=== PATIENT | female | born 2005 | race Hispanic/Latino ===

== ENCOUNTER 2025-03-11 22:57 | Observation (INO) | payer OTHER, SELFPAY ==
[2025-03-11 18:03] VITALS: BP 112/74
[2025-03-11 18:48] LABS: HCG, Urine Qualitative Screen Negative
--- NOTE | 2025-03-11 21:04 | ED.GENMED ---
History of Present Illness
General
Chief Complaint: Numbness
Time Seen by Provider: 03/11/25 21:04
History of Present Illness
History of Present Illness:
TIME OF INITIAL EVALUATION
- 9:15 PM
REVIEW OF OLD RECORDS
- The patient denies any significant past medical history; no old records available for review in [facility]
Note:
CHIEF COMPLAINT(S)
Numbness in the right thigh and arm.
HISTORY OF PRESENT ILLNESS
The patient is a 20-year-old female presenting with numbness in the right thigh. She reports waking up at 6 a.m. today with these symptoms, having gone to bed the previous night without any issues. The patient denies having experienced anything
similar before. She reports that the numbness also extends to the right arm, which she finds more concerning. While there is some sensation upon touch, it feels different compared to normal. Additionally, she experiences some unusual sensations in
her face, though less pronounced than the thigh or arm symptoms. She is able to perform motion and retains muscle strength, suggesting the issue is primarily sensory.
The patient describes a history of facial paralysis due to stress. She questions whether the current symptoms might also be stress-related, although she is uncertain. There is no reported pain in the back upon palpation, and her ability to move
remains unimpaired despite altered sensation.
PLAN
Consult with Neurology for further evaluation. Obtain a CT scan to investigate the cause of numbness.
DIFFERENTIAL DIAGNOSIS
The Differential Diagnosis includes, in no particular order and is not limited to: Transient Ischemic Attack, Multiple Sclerosis, Peripheral Neuropathy, Conversion Disorder, Guillain-Rivera� Syndrome, Hypoglycemia, Migraine, Cervical Radiculopathy,
Brachial Plexopathy, Mononeuritis Multiplex.
- General: Well appearing in no distress
- HEENT: Moist oral mucosa
- Cardiovascular: No murmurs, normal heart rate, regular rhythm, No chest wall tenderness
- Pulmonary: No respiratory distress, breath sounds are clear and equal
- Abdomen: Soft with no peritoneal signs, no tenderness
- Neurologic: Excellent strength all extremities, no coordination deficits, however she clearly has sensory deficits to the right thigh more so than the right upper extremity and right side of the face
- Psychiatric: Appropriate mental status, normal insight and judgement
- Extremities: Nontender, no edema, moves all extremities equally
- Skin: No rash, no lesions
RADIOLOGY
- CT head negative
EKG
- Sinus 70, normal axis, no acute ST abnormality
LABS
- CBC shows slight anemia with a hemoglobin 11.2, chemistries unremarkable, hCG negative
UPDATE
-SUMMARY OF ENCOUNTER
The patient presented to the emergency department with numbness in the right thigh and arm. A CT scan and blood work were performed, both of which returned normal results. Despite this, the symptoms persisted, leading to considerations for further
evaluation as per a neurologists recommendation for an MRI.
DISPOSITION
Discussions with the hospitalist are being initiated to consider inpatient admission for further evaluation.
PLAN
Consult with neurology and obtain an MRI for further evaluation of the numbness and to investigate potential underlying causes.
MEDICAL DECISION MAKING
The patient exhibits persistent sensory symptoms without resolution. Chronic conditions and differential diagnoses include Transient Ischemic Attack, Multiple Sclerosis, Peripheral Neuropathy, Conversion Disorder, Guillain-Rivera� Syndrome,
Hypoglycemia, Migraine, Cervical Radiculopathy, Brachial Plexopathy, Mononeuritis Multiplex. Given the complexity and persistence of symptoms, inpatient observation is being considered.
PATHOLOGIES TO CONSIDER
Stroke (focal neurologic deficits + sudden onset), Multiple Sclerosis (sensory impairment), Guillain-Rivera� Syndrome (progressive numbness)�very unlikely, Transient Ischemic Attack (neurologic symptoms).
I discussed case with Dr. Gonzalez who recommends admission for MRI with and without contrast tomorrow. Dr. Bojorquez for admission.
Phy Exam
Physical Exam
Physical Exam:
See HPI
Course
Orders/Labs/Results
Orders:
Orders
03/11/25 18:36
Test Result ONCE
03/11/25 18:40
HCG, Urine Qualitative Screen Urgent
Date Specimen was Collected: 03/11/25
Time Specimen was Collected: 18:36
03/11/25 21:12
CT Head W/o Iv Contrast Urgent
Comment:
Reason For Exam: R sensory deficits new
03/11/25 21:15
Electrocardiogram (*1) Urgent
Reason for Study: TIA/Stroke
EKG- Treatment ONCE
03/11/25 21:30
Complete Blood Count/With Diff Urgent
Comprehensive Metabolic Panel Urgent
03/11/25 22:22
Electrocardiogram (*1) Urgent
Reason for Study: TIA/Stroke
EKG- Treatment ONCE
03/11/25 22:45
Admit/Transfer Patient As Directed
Co-Sign Provider:
Level of Care: Observation services
Assign to:: Medical/Surgical
Physician / Group: [place]
Diagnosis: numbness
PRN Pain Medication Management As Directed
May give lesser potent ordered pain med per pt: Yes
preference::
Protocol:: Medication orders for pain may be administered in a
manner that supports deferring to patient preference
when the pt is:
- Requesting an ordered lesser potent pain medication.
Least to most potent pain medications are defined
as: acetaminophen < NSAID < tramadol < opioids
(morphine, oxycodone, hydromorphone).
- Requesting a lesser dose of the same medication IF
ORDERED.
- Requesting a less intrusive route of administration
if both routes are prescribed by the provider (PO <
IV).
03/11/25 22:46
Code Status As Directed
Resuscitation Status: Full Code
03/11/25 22:51
EKG [Electrocardiogram (*1)] Urgent
Reason for Study: Fatigue / Weakness
Abnormal Lab Results
03/11/25
21:30
RBC 4.03 L 10^6/uL
(4.20-5.40)
Hgb 11.2 L g/dL
(12.0-16.0)
Hct 33.4 L %
(37.0-47.0)
Glucose 102 H mg/dl
(70-99)
03/11/25 21:30
03/11/25 21:30
Vital Signs
Initial and Last Documented VS:
Initial Vital Signs
Temp Pulse Resp BP Pulse Ox
37.0 C 88 16 112/74 100
03/11/25 18:03 03/11/25 18:03 03/11/25 18:03 03/11/25 18:03 03/11/25 18:03
Last Documented Vital Signs
Temp Pulse Resp BP Pulse Ox
37.0 C 74 13 107/69 100
03/11/25 18:03 03/11/25 21:31 03/11/25 21:31 03/11/25 21:31 03/11/25 21:55
*Pulse Oximetry
SaO2: 100
Oxygen Mode of Delivery: Room air
Patient hypoxic: no
*Critical Care Note
Total Time (30-74mins, 75-104mins- exclusive of procedures): Not Applicable
ED Attending Note
-
Portions of this chart may have been created with voice recognition software.� Occasional wrong word or��sound alike� substitutions may have occurred due to the inherent limitations of voice recognition software.
Discharge Plan
Departure
Patient Disposition: Admit
Date of Disposition: 03/11/25
Time of Disposition: 22:48
Presentation/result/management discussed w/ accepting MD/DO: Hospitalist
Patient with high blood pressure during this ER visit?: Yes
Discharge Problem:
Sensory deficit, right
Interventions
Interventions:
*Risk Screen - Suicide Last Done: 03/11/25 21:31
*General Assessment Last Done: 03/11/25 21:31
*Neglect/Abuse Screening Last Done: 03/11/25 21:31
*ED- Fall Risk Assessment Last Done: 03/11/25 21:31
*ED COVID-19 Vaccine History Last Done: 03/11/25 21:31
ED- Neurological Assessment Last Done: 03/11/25 21:33
[2025-03-11 21:21] VITALS: BMI 26.6
[2025-03-11 21:31] VITALS: BP 107/69
[2025-03-11 21:50] LABS: % Basophils 0.1 % (0-2); % Eosinophils 0.6 % (0-6); % Immature Granulocytes 0.3 % (0-0.5); % Lymphocytes 31.9 % (20.5-51.1); % Monocytes 6.5 % (1.7-9.3); % Neutrophils 60.6 % (42.2-75.2); Absolute Eosinophils 0.1 10^3/uL (0-0.7); Absolute Lymphocytes 2.5 10^3/uL (1.2-3.4); Absolute Monocytes 0.5 10^3/uL (0.1-0.6); Absolute Neutrophils 4.8 10^3/uL (1.4-6.5); Hematocrit 33.4 % (37.0-47.0); Hemoglobin 11.2 g/dL (12.0-16.0); Mean Corp Hgb Conc. 33.5 g/dL (33.0-37.0); Mean Corpuscular Hgb 27.8 pg (27.0-31.0); Mean Corpuscular Volume 82.9 fL (81.0-99.0); Nucleated Red Blood Cells % 0 %; Platelet Count 340 10^3/uL (130-400); Red Blood Cell Count 4.03 10^6/uL (4.20-5.40); Red Cell Dist. Width 13.1 % (11.5-14.5); White Blood Cell Count 7.9 10^3/uL (4.8-10.8)
[2025-03-11 21:58] VITALS: BP 112/75
[2025-03-11 22:00] VITALS: BP 109/69
[2025-03-11 22:11] LABS: ALT (SGPT) 16 U/L (0-35); AST (SGOT) 21 U/L (14-36); Albumin 4.5 g/dl (3.5-5.0); Alkaline Phosphatase 97 U/L (38-126); Blood Urea Nitrogen 8 mg/dl (7-17); Calcium 9.2 mg/dl (8.4-10.2); Carbon Dioxide 22 mmol/L (22-30); Chloride 106 mmol/L (98-107); Estimated Creatinine Clearance > 125 ml/min; Glucose 102 mg/dl (70-99); Potassium 3.7 mmol/L (3.5-5.1); Sodium 139 mmol/L (135-145); Total Bilirubin 0.5 mg/dl (0.2-1.3); Total Protein 7.3 g/dl (6.3-8.2); eGFR > 60.00
--- NOTE | 2025-03-11 22:32 | HPS.HSE ---
Family Physician
-
Family Physician: NOT KNOW UNKNOWN - PT DOES
Chief Complaint
-
Loss of sensation
History of Present Illness
20-year-old female with no known segment past medical history presenting to the emergency department with a 1 day history of right-sided lateral numbness.
Patient reported that about 3 days ago she did have 1 episode of a headache that lasted till day she took Tylenol and when she woke up the following day she was symptom-free. She has not had any symptoms of headache since then. She denies history
of recurrent headaches. She denies having any fevers chills or rash. She denies any neck pain or stiffness. She denies any recent nausea vomiting diarrhea. She denies any UTI symptoms.
Patient reported that she arose this a.m. with ascending numbness. Initially numbness was noticed on her right thigh laterally all the way to her foot. As the day progressed she also noticed numbness on her right lateral arm which is not as
prominent as compared to the leg. She also reports now that she has mild numbness on the right lower cheek/jaw. She denies any focal weakness. She denies any tingling. She denies any gait abnormality. She denies any dizziness. She denies any
recent falls injuries or motor vehicle collision. Patient has no known sick contacts and no recent travel. She denies any prior history of any surgeries.
She denies any known history of connective tissue disorder. She reports a family history of hypertension and hypothyroid and mother. She takes no medications and denies any ingestions.
In the emergency department patient was afebrile, blood pressure was 107/70 with a pulse of 74 she was satting 90% on room air.
CBC was unremarkable, electrolytes BUN/creatinine were unremarkable, LFTs normal.
CT of the head showed no abnormalities.
Medical History
Past Medical History
Past Medical History: Reports None
Past Surgical History: Reports None
Social History
Tobacco: Non-smoker
Alcohol: None
Drug: None
Personal: Single
Living: With Family
Family History
Family History: Not pertinent
Allergies / Home Medications
Allergies reflects when Allergies were last updated in [facility].
Home Medications with original date entered in [facility]
Allergy/Medication List:
Allergies
Allergy/AdvReac Type Severity Reaction Status Date / Time
No Known Allergies Allergy Unverified 03/11/25 18:03
Review of Systems
-
Constitutional: Reports No Symptoms
EENT: Reports No Symptoms
Respiratory: Reports No Symptoms
Cardiac: Reports No Symptoms
Abdomen/GI: Reports No Symptoms
: Reports No Symptoms
Musculoskeletal: Reports No Symptoms
Skin: Reports No Symptoms
Neurological: Reports Numbness
Endocrine: Reports No Symptoms
Hematologic/Lymphatic: Reports No Symptoms
Psych: Reports No Symptoms
Physical Exam
Vital Signs
Vital Signs
Temp Pulse Resp BP Pulse Ox
98.6 F 74 13 107/69 100
03/11/25 18:03 03/11/25 21:31 03/11/25 21:31 03/11/25 21:31 03/11/25 21:55
Physical Exam
General: Well Developed, Well Nourished and No Apparent Distress
HEENT: NormoCephalic, Moist mucous membranes and Atraumatic
Respiratory: Clear
Cardiac: S1/S2 and Regular Rhythm; No Murmur or Rub
GI: Soft, Non Tender, Non Distended and Normal Bowel Sounds; No Organomegaly
Rectal: Deferred by Provider
Musculoskeletal: No Clubbing, No Cyanosis and No Edema
Skin: No Rash
Neuro: AO x 3, No Motor Deficits, Cranial Nerves Intact, DTR's Intact & Symmetrical and Other (decreased light touch sensation on the lateral aspects of the right lower and upper extremities.); No No Sensory Deficits, Slurred Speech, Facial Droop or
Tremors
Hematologic/Lymphatic: No Lymphadenopathy
Psych: Calm
Laboratory Results
-
03/11/25 21:30
03/11/25 21:30
Laboratory Results
Total Bilirubin 0.5 mg/dl (0.2-1.3) 03/11/25 21:30
AST 21 U/L (14-36) 03/11/25 21:30
ALT 16 U/L (0-35) 03/11/25 21:30
Alkaline Phosphatase 97 U/L (38-126) 03/11/25 21:30
Data Reviewed
-
CT Scan: Report Reviewed by me
Lab Data: Labs Reviewed by me
Old Records: Reviewed
Impression/Plan
-
IMPRESSION:
20 y.o healthy female w/o significant personal or family history presenting with ascending right lateral numbness up to the level of the right jaw/lower cheek w/o any motor deficits. Normal cranial nerve examination. Normal gait and station. Labs
normal. CT head normal. No signs of infection, rash, injury. Exam c/w with a left lateral spinal cord or mid-brain lesion.
PLAN:
Numbness
- admit to med/surg obs
- per neuro, mri brain w/wo gadolinium
- cardiovascular panel
- inflammatory panel and chris
DVT PPX - SCDs
Code status - Full Code
[2025-03-11 23:00] VITALS: BP 108/72
[2025-03-12 00:27] VITALS: BP 98/66; BMI 26.2
[2025-03-12 07:30] VITALS: BP 99/61
[2025-03-12 08:00] LABS: Hematocrit 32.3 % (37.0-47.0); Hemoglobin 10.8 g/dL (12.0-16.0); Mean Corp Hgb Conc. 33.4 g/dL (33.0-37.0); Mean Corpuscular Volume 83.7 fL (81.0-99.0); Mean Platelet Volume 9.1 fL (7.4-10.4); Platelet Count 281 10^3/uL (130-400); Red Blood Cell Count 3.86 10^6/uL (4.20-5.40); Red Cell Dist. Width 13.2 % (11.5-14.5); White Blood Cell Count 5.7 10^3/uL (4.8-10.8)
--- NOTE | 2025-03-12 08:19 | CON.NEURO ---
Addendum entered and electronically signed by Hamzah Menezes MD 03/12/25 10:53:
Studies reviewed.
I have personally examined the patient. I reviewed and agree with the [employer]'s Note.
My addenda:
Awake, alert, interactive. No acute distress.
Speech intact.
Follows 2-step requests w/o difficulty. No tremor.
Extra-ocular movements grossly intact.
Facial movements full and symmetric. Hearing intact to normal conversational volume.
Normal UE movements bilaterally.
Neck: full ROM.
Chest: no dyspnea
Heart: no JVD
Ext: (-) Clubbing, (-) Cyanosis, (-) Edema
IMPRESSIONS/RECOMMENDATIONS:
Abrupt onset of right thigh, abdomen, arm, facial, sensation change
Differential diagnosis includes multiple sclerosis and variants, metabolic disturbances
Check MRI brain with and without contrast
Check MRI of cervical spine due to multilevel potential changes producing symptomatology
Consider initiation of high-dose steroids based on MRI of brain findings
Consider lumbar puncture based on MRI results, would perform if there are numerous lesions without enhancing lesions to better determine if there are oligoclonal bands which would help to confirm the diagnosis of multiple sclerosis
No clear indication at this time for the need of rehabilitation evaluation
Initiate replacement of vitamin B12 due to level below 400
D/W patient / nursing
All questions answered.
Will continue to follow patient.
Original Note:
Neuro Assessment/Plan
Assessment
This is a right-handed 20-year-old female with no known past medical history presenting to the [facility] on 03/11/2025 with a 1 day history of right-sided lateral numbness.
CT of the head showed no abnormalities
CBC was unremarkable, electrolytes BUN/creatinine were unremarkable, LFTs normal
ESR 27, CRP, 15.2, Vitamin D pending, DEANNA pending
Plan
Impressions:
I. right sided numbness due to infection, inflammation or demyelinating disease with imaging pending
II. migraine with aura although less likely as patient is still experiencing symptoms
Plan:
-Obtain brain and cervical MRI with and without to look for structural causes
-Obtain blood work to look for metabolic and vitamin abnormalities
-Pending results may need thoracic MRI, LP and additional lab work
-Will continue to follow
-All questions encouraged and answered, plan of care discussed with Dr. Menezes and patient
Consultation
Order
Date of Consultation: 03/12/25
Requesting Provider: hospitalist
Reason for Consult: right-sided lateral numbness
Subjective/Objective
Subjective Data
Date of Service: March 12, 2025
This is a right-handed 20-year-old female with no known past medical history presenting to the [facility] on 03/11/2025 with a 1 day history of right-sided lateral numbness.
Patient reported that about 3 days ago she did have 1 episode of a headache that lasted all day until she took Tylenol and when she woke up the following day she was symptom-free. She has not had any symptoms of headache since then. She denies
history of recurrent headaches and gets them maybe 1-2 times a year. She denies accompanying symptoms. She denies having any fevers chills or rash. She denies any neck pain or stiffness. She denies any recent nausea vomiting diarrhea. She denies
any UTI symptoms.
Patient reported that she arose yesterday with ascending numbness. Initially numbness was noticed around 6 am on her right thigh laterally all the way to her mid calf. As the day progressed, around 2 pm she also noticed numbness on her right
lateral arm which is not as prominent as compared to the leg. Five hours later started to feel numbness to right side of her face in her cheek/jaw area. She denies any focal weakness. She denies any tingling. She denies any gait abnormality.
Denies issues with balance. She denies any dizziness. No issues with speech or swallowing. No neck or back pain. No dizziness. No issues with bowel/bladder. She denies any recent falls injuries or motor vehicle collision. Patient has no known sick
contacts and no recent travel. She denies any prior history of any surgeries. Currently, she is still experiencing numbness to her right lateral thigh, right abdomen and chest, right lateral upper extremity, right cheek/jaw to pin prick.
She denies any known history of connective tissue disorder. She reports a family history of hypertension and hypothyroid and mother. She takes no medications and denies any ingestions.
In the emergency department patient was afebrile, blood pressure was 107/70 with a pulse of 74 she was satting 90% on room air. CBC was unremarkable, electrolytes BUN/creatinine were unremarkable, LFTs normal. CT head with no abnormalities.
Of note, back when she was living in [place] several years ago, she reports her head stuck to the side was told it was due to stress. Apparently, imaging unrevealing and no medications were given at that time and her symptoms resolved.
When she had Covid in 2020 she reports a syncopal event and went to the hospital. She was told her syncope was due to dehydration.
Objective Data
Vital Signs
Temp Pulse Resp BP Pulse Ox
97.8 F 64 16 99/61 100
03/12/25 07:30 03/12/25 07:30 03/12/25 07:30 03/12/25 07:30 03/12/25 07:30
Lab Results
03/12/25 07:08
Sodium 139 mmol/L (135-145) 03/11/25 21:30
Potassium 3.7 mmol/L (3.5-5.1) 03/11/25 21:30
BUN 8 mg/dl (7-17) 03/11/25 21:30
Glucose 102 mg/dl (70-99) H 03/11/25 21:30
Calcium 9.2 mg/dl (8.4-10.2) 03/11/25 21:30
Patient Allergies
No Known Allergies Allergy (Unverified 03/11/25 18:03)
Past History
Past Medical / Surgical History
Past Medical History: None
Past Surgical History: None
Social History
Personal: Single
Living: with family
Employment: Employed
Family History
Family History: Stroke
Review of Systems
-
History Source: Patient
Constitutional: No Symptoms
EENT: No Symptoms Reported
Respiratory: No Symptoms
Cardiac: No Symptoms
Abdomen/GI: No Symptoms
Genitourinary: No Symptoms
Musculoskeletal: No Symptoms
Skin: No Symptoms
Neuro: Numbness
Hematologic / Lymphatic: No Symptoms
Physical Exam
-
General: No Apparent Distress and Comfortable
HEENT: Normocephalic and Atraumatic
Neck: Full Range of Motion
Respiratory: No Dyspnea
Cardiac: No JVD
GI: Non-distended
Skin: Warm and Dry
Extremities: No Clubbing, No Cyanosis and No Edema
Extended Neurological Exam
Mood & Affect: Mood Unremarkable
Attention Span & Concentration: Awake, Alert, Interactive and No Difficulty with 2 Step Request
Memory: Unremarkable
Tremor: Hand Tremor Absent and Head Tremor Absent
Involuntary Movement: None
Speech: Quality Unremarkable, Quantity Unremarkable and Rate of Production Unremarkable
Cranial Nerve II: Right Eye: Pupillary Reactivity Unremarkable, Pupillary Size Unremarkable and Visual Flowers Grossly Intact
Cranial Nerves III, IV, : Extraocular Movement: Extraocular Movement Full in all Directions
Cranial Nerve V: Facial Sensation: Facial Sensation Unremarkable to Cold and Reduced (decreased sensation to pin prick along V2 and V3)
Cranial Nerve VII: Facial Symmetry: Normal Facial Symmetry
Cranial Nerve VIII: Hearing: Unremarkable Hearing to Normal Conversational Volume
Cranial Nerves IX, X: Palate Movement: Palate Elevation Symmetric
Cranial Nerve XI: Shoulder Shrug: Unremarkable
Cranial Nerve XII: Tongue Protusion: Midline
Muscle Strength, Overall: Full Throughout
Muscle Bulk & Tone: Bulk Unremarkable
Pronator Drift: No Drift in Upper Extremities and No Drift in Lower Extremities
Deep Tendon Reflexes: Unremarkable Throughout
Cold Sensation: Unremarkable
Touch Sensation: Pin Prick Reduced (decreased to right lateral thigh, right lateral arm and right abdomen and chest)
Coordination: Mwceox-fepy-qjotca Testing Unremarkable and Reaches for Objects without Difficulty
Data Reviewed
-
CT Head: Report Reviewed and Image Reviewed
Labs: Report Reviewed
Lipid Profile: Pending
Reviewed with: Physician and Patient
Old Records: Summarized
Medications
-
Active Medications
Generic Name Dose Route Start Last Admin
Trade Name Freq PRN Reason Stop Dose Admin
Acetaminophen 650 mg 03/12/25 00:25
Acetaminophen 325 Mg Tablet PO 04/09/25 00:24
Q4HPRN PRN
mild pain/MCCOY/temp> 100.4F
Bisacodyl 10 mg 03/12/25 00:25
Bisacodyl 10 Mg Rectal Suppository RECTAL 04/09/25 00:24
[id number] PRN
constipation
Polyethylene Glycol 17 grams 03/12/25 00:25
Polyethylene Glycol Powder 17 Grams Packet PO 04/09/25 00:24
DAILYPRN PRN
constipation
Senna/Docusate Sodium 1 tablet 03/12/25 00:25
Docusate W/Senna (Rachel-Colace) Tablet PO 04/09/25 00:24
BIDPRN PRN
constipation
Sodium Chloride 0 flush 03/11/25 23:00
Sodium Chloride 0.9% (Flush) Syringe IV 04/08/25 22:59
PER PROTOCOL BHUPINDER
Home Medications
�Medication �Instructions �Recorded
No Meds [No Current Medications] 03/11/25
[2025-03-12 08:22] LABS: Erythrocyte Sed Rate 27 mm/hour (0-20)
[2025-03-12 08:45] LABS: Blood Urea Nitrogen 6 mg/dl (7-17); Carbon Dioxide 23 mmol/L (22-30); Chloride 108 mmol/L (98-107); Estimated Creatinine Clearance > 125 ml/min; Glucose 86 mg/dl (70-99); HDL Cholesterol 50 mg/dl; LDL Cholesterol, Calculated 85 mg/dl; Potassium 3.9 mmol/L (3.5-5.1); Sodium 139 mmol/L (135-145); Total Cholesterol 147 mg/dl (50-199); Triglyceride 60 mg/dl (10-149); Very Low Density Lipoprotein 12 mg/dl (0-30); eGFR > 60.00
[2025-03-12 09:21] LABS: TSH 1.45 uIU/ml (0.47-4.68)
[2025-03-12 09:25] LABS: Ferritin 33.5 ng/ml (6.24-137)
[2025-03-12 09:57] LABS: Folate 13.9 ng/ml (2.76-20); Vitamin B12 388 pg/ml (239-931)
[2025-03-12 10:48] LABS: Vitamin D, 25-OH*** 12.9 ng/mL (30-80)
[2025-03-12] MEDS: VITAMIN B-12 1000 MCG PO (11:04)
[2025-03-12 11:39] LABS: Amphetamines Negative (Negative); Barbiturates Negative (Negative); Benzodiazepines Negative (Negative); Buprenorphine Negative (Negative); Cocaine Negative (Negative); Marijuana Negative (Negative); Methadone Negative (Negative); Methamphetamines Negative (Negative); Opiates Negative (Negative); Phencyclidine Negative (Negative); Tricyclic Antidepressants Negative (Negative)
--- NOTE | 2025-03-12 11:45 | W.PN.HOSP.TC ---
Today's Communication/Plan
-
Await MRI
Assessment / Plan
Assessment / Plan
Gen-AAOx3, NAD
HEENT-NC, AT, anicteric, clear oral mm
Neck-supple
CV-reg, no M, +S1/S2
Lungs-clear B/L
Abd-soft, NT, ND
Ext-no edema
Musculoskeletal-no cyanosis, clubbing
Skin-warm and dry
Neuro-decreased sensation of the right thigh, right forearm, right side of face involving the cheek
Psych-calm, cooperative
Right sided numbness -await brain MRI, cervical spine MRI. Neurology input noted. CRP mildly elevated, 15.2.
Denies history of headaches or migraines but did have what sounds like a migraine headache on March 09. Her symptoms of numbness started on March 11.
History of nontraumatic severe lumbar back pain at the age of 14 that made her incapacitated for 3 days. Did not seek medical care.
History of torticollis at the age of 4 causing her head to be rotated to the right, resolved within 24 hours.
Normocytic anemia -denies heavy menses. Hemoglobin 10.8. She is not aware of anemia as a diagnosis.
Low normal vitamin B12 noted. Oral B12 started.
Vitamin D deficiency noted.
Full code
Anticipated Discharge: Within 24 hours
Subjective/Interval History
-
Date of Service: March 12, 2025
Patient seen and examined. Still with right-sided numbness.
Objective Data
-
Labs:
Laboratory Results
03/12/25
07:08
WBC 5.7
Hgb 10.8 L
Hct 32.3 L
Plt Count 281
Sodium 139
Potassium 3.9
Chloride 108 H
Carbon Dioxide 23
BUN 6 L
Creatinine 0.6
Glucose 86
Calcium 9.0
Vital Signs:
Vital Signs
Temp Pulse Resp BP Pulse Ox
97.8 F 64 16 99/61 100
03/12/25 07:30 03/12/25 07:30 03/12/25 07:30 03/12/25 07:30 03/12/25 10:00
I&O
03/11/25 03/12/25 03/13/25
06:59 06:59 06:59
Intake Total 480 / 480
Balance 480 / 480
Review of Systems
-
History Source: Patient
All other systems: Reviewed and negative
--- NOTE | 2025-03-12 12:06 | CM ---
Addendum entered by Pedro Calvo 03/13/25 11:56:
D/c today. No CM needs at this time
Original Note:
Patient seen bedside, initial assessment completed. Patient is a 20-year-old female with no known segment past medical history presenting to the emergency department with a 1 day history of right-sided lateral numbness.
Patient resides w/ her parents and 2 younger siblings in a single story home, 4 steps to enter. Patient independent in all areas. Patient currently does not have a PCP at this time, stated she hasn't had an annual exam or seen a doctor in a few
years. CM encouraged patient to call her insurance to be connected w/ in network providers. In the meantime, patient agreeable to residency clinic information.
PCP: None at this time
Pharmacy: [facility]
Patient currently admitted as obs. OOBS form verbally reviewed, copy provided, copy on chart
Plan: Home, no needs
[2025-03-12 15:30] VITALS: BP 95/59
[2025-03-12] MEDS: DRISDOL (VITAMIN D2) 50000 UNITS PO (16:28)
[2025-03-12 23:20] VITALS: BP 99/66
[2025-03-13 07:35] VITALS: BP 87/55
[2025-03-13] MEDS: VITAMIN B-12 1000 MCG PO (08:24)
[2025-03-13] MEDS: SENOKOT-S 1 TABLET PO (08:27)
[2025-03-13 08:35] VITALS: BP 92/62
--- NOTE | 2025-03-13 08:52 | W.PN.NEURO.1 ---
Addendum entered and electronically signed by Hamzah Menezes MD 03/13/25 10:14:
Studies reviewed.
I have personally examined the patient. I reviewed and agree with the CHASS[facility] DRIVER's Note.
My addenda:
Awake, alert, interactive. No acute distress.
Speech intact.
Follows 2-step requests w/o difficulty. No tremor.
Extra-ocular movements grossly intact.
Facial movements full and symmetric. Hearing intact to normal conversational volume.
Normal UE movements bilaterally.
Neck: full ROM.
Chest: no dyspnea
Heart: no JVD
Ext: (-) Clubbing, (-) Cyanosis, (-) Edema
IMPRESSIONS/RECOMMENDATIONS:
Abrupt onset of right hemibody sensory changes with subjective loss of sensation by examination
No evidence at this time of intracranial inflammatory process either at the brain or cervical spine levels
Remaining option is the patient has had a metabolic disturbance producing symptomatology including deficiencies of vitamin B12, low ferritin (below 75) and less so vitamin D deficiency
No clear indication patient would benefit from additional prescription medications at this time
Provide IV iron x 1 with hopeful reduction of the patient's symptomatology. Patient should utilize iron supplementation at bedtime with monitoring for constipation
Continue vitamin B12 replacement
Continue prescription strength and [id number] vitamin D replacement
D/W patient
All questions answered.
Will continue to follow as outpatient.
Original Note:
Today's Communication / Plan
-
Plan:
-Vitamin D 12.5, start D2 50,000IU weekly x 8 weeks
-Vitamin B level 388, start B12 1,000 mcg daily
-Ferritin level low, start ferrous sulfate 325 mg hs and ferric sodium gluconate complex 125 mg IV
-Follow up with neurology outpatient
-All questions encouraged and answered, plan of care discussed with Dr. Menezes and patient
Neuro Assessment/Plan
Assessment
This is a right-handed 20-year-old female with no known past medical history presenting to the [facility] on 03/11/2025 with a 1 day history of right-sided lateral numbness.
CT of the head showed no abnormalities
CBC was unremarkable, electrolytes BUN/creatinine were unremarkable, LFTs normal
ESR 27, CRP, 15.2, Vitamin D 12.5, Vitamin B12 388 DEANNA pending
Brain MRI: No acute intracranial abnormality noted. 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
Cervical MRI: Unremarkable appearance of the cervical spinal cord. Small central disc protrusion of C5-C6 without significant spinal canal or neuroforaminal stenosis. Mildly prominent bilateral cervical lymph nodes measuring up to 1.0 cm on the
right, possibly reactive.
Plan
Impressions:
I. abrupt onset of right thigh, abdomen, arm, facial sensation changes secondary to metabolic disturbances, no evidence of MS radiographically
II. migraine with aura although less likely as patient is still experiencing symptoms
Plan:
-Vitamin D 12.5, start D2 50,000IU weekly x 8 weeks
-Vitamin B12 level 388, start B12 1,000 mcg daily
-Ferritin level low, start ferrous sulfate 325 mg hs and ferric sodium gluconate complex 125 mg IV
-Follow up with neurology outpatient
-All questions encouraged and answered, plan of care discussed with Dr. Menezes and patient
Subjective/Objective
Subjective Data
Date of Service: March 13, 2025
Had MRI of her brain and cervical spine. Feeling better today. Right thigh no longer numb, continues with loss of sensation to right arm and right side of face. Denies headache, nausea, dizziness. History of migraines in mother. No new neurologic
complaints today.
Objective Data
Vital Signs
Temp Pulse Resp BP Pulse Ox
97.7 F 63 16 92/62 99
03/13/25 07:35 03/13/25 07:35 03/13/25 07:35 03/13/25 08:35 03/13/25 07:35
Lab Results
03/12/25 07:08
03/12/25 07:08
Sodium 139 mmol/L (135-145) 03/12/25 07:08
Potassium 3.9 mmol/L (3.5-5.1) 03/12/25 07:08
BUN 6 mg/dl (7-17) L 03/12/25 07:08
Glucose 86 mg/dl (70-99) 03/12/25 07:08
Calcium 9.0 mg/dl (8.4-10.2) 03/12/25 07:08
LDL Cholesterol, Calc 85 mg/dl 03/12/25 07:08
Vitamin B12 388 pg/ml (239-931) 03/12/25 07:08
Ur Buprenorphine Negative (Negative) 03/12/25 11:06
Patient Allergies
No Known Allergies Allergy (Unverified 03/11/25 18:03)
Physical Exam
-
General: No Apparent Distress and Comfortable
HEENT: Normocephalic and Atraumatic
Neck: Full Range of Motion
Respiratory: No Dyspnea
Cardiac: No JVD
GI: Non-distended
Skin: Warm and Dry
Extremities: No Clubbing, No Cyanosis and No Edema
Extended Neurological Exam
Mood & Affect: Mood Unremarkable
Attention Span & Concentration: Awake, Alert, Interactive and No Difficulty with 2 Step Request
Memory: Unremarkable
Tremor: Hand Tremor Absent and Head Tremor Absent
Involuntary Movement: None
Speech: Quality Unremarkable, Quantity Unremarkable and Rate of Production Unremarkable
Cranial Nerve II: Right Eye: Visual Flowers Grossly Intact
Cranial Nerves III, IV, : Extraocular Movement: Extraocular Movement Full in all Directions
Cranial Nerve VII: Facial Symmetry: Normal Facial Symmetry
Cranial Nerve VIII: Hearing: Unremarkable Hearing to Normal Conversational Volume
Muscle Strength, Overall: Full Throughout
Muscle Bulk & Tone: Bulk Unremarkable
Pronator Drift: No Drift in Upper Extremities and No Drift in Lower Extremities
Coordination: Reaches for Objects without Difficulty
Data Reviewed
-
MRI Head: Report Reviewed and Image Reviewed
MRI Cervical Spine: Report Reviewed and Image Reviewed
Labs: Report Reviewed
Reviewed with: Physician and Patient
Old Records: Summarized
--- NOTE | 2025-03-13 11:35 | W.PN.HOSP.TC ---
Today's Communication/Plan
-
Discharge
Assessment / Plan
Assessment / Plan
Gen-AAOx3, NAD
HEENT-NC, AT, anicteric, clear oral mm
Neck-supple
CV-reg, no M, +S1/S2
Lungs-clear B/L
Abd-soft, NT, ND
Ext-no edema
Musculoskeletal-no cyanosis, clubbing
Skin-warm and dry
Neuro-decreased sensation of the right thigh, right forearm, right side of face involving the cheek
Psych-calm, cooperative
Right sided numbness -brain and cervical spine MRI without significant pathology. Symptoms have resolved. Etiology of numbness unclear. Doubt related to vitamin deficiency.
Denies history of headaches or migraines but did have what sounds like a migraine headache on March 09. Her symptoms of numbness started on March 11.
History of nontraumatic severe lumbar back pain at the age of 14 that made her incapacitated for 3 days. Did not seek medical care.
History of torticollis at the age of 4 causing her head to be rotated to the right, resolved within 24 hours.
Normocytic anemia -denies heavy menses. Hemoglobin 10.8. She is not aware of anemia as a diagnosis. Ferritin is on the low end of normal, iron and TIBC pending. Neurology service has ordered a dose of IV iron. Cannot say with confidence she has
true iron deficiency.
Low normal vitamin B12 noted. Oral B12 started.
Vitamin D deficiency -repletion started.
Full code
Dispo -medically stable for discharge home today. Outpatient follow-up. She does not have a PCP, encouraged her to obtain a PCP as soon as possible.
31 minutes spent in discharge process.
Anticipated Discharge: Today
Subjective/Interval History
-
Date of Service: March 13, 2025
Patient seen and examined. Feeling better, numbness has resolved.
Objective Data
-
Vital Signs:
Vital Signs
Temp Pulse Resp BP Pulse Ox
97.7 F 63 16 92/62 99
03/13/25 07:35 03/13/25 07:35 03/13/25 07:35 03/13/25 08:35 03/13/25 09:54
I&O
03/12/25 03/13/25 03/14/25
06:59 06:59 06:59
Intake Total 480 / 480 1200 / 1200
Balance 480 / 480 1200 / 1200
Review of Systems
-
History Source: Patient
All other systems: Reviewed and negative
--- NOTE | 2025-03-13 11:39 | W.DS.TRANS ---
DC Summary - Gm Video
-
Discharge Instructions:
Discharge Diagnosis/Procedures Right sided numbness, vitamin D deficiency
Diet Regular
Activity As tolerated
Driving Restrictions As prior to admission
Bathing Restrictions None
Instructions:
Stand-Alone Forms:
Changes to Home Medications: No
Discharge Medications:
DC Medications w/original date entered in [employer]
cyanocobalamin (vitamin B-12) 1,000 mcg tablet (Vitamin B-12) 1,000 mcg PO DAILY #30 tabs 03/13/25
ergocalciferol (vitamin D2) 1,250 mcg (50,000 unit) capsule (Vitamin D2) 1,250 mcg PO Q7D #8 caps 03/13/25
ferrous sulfate 325 mg (65 mg iron) tablet (FeroSul) 325 mg PO HS #30 tabs 03/13/25
Home Medication Changes
Pending Results: No
[2025-03-13] MEDS: FERRLECIT 110 MG IV (12:04)
[2025-03-13 13:17] VITALS: BP 91/62
[2025-03-13 14:35] LABS: Iron 90 ug/dl (37-170)
[2025-03-13 14:47] LABS: Percent Saturation 27 % (20-50); Total Iron Binding Capacity 327 ug/dl (265-497)
[2025-03-15 02:02] LABS: ANA, IgG Reflex to HEp-2 None Detected (None Detected)
== END 2025-03-13 13:23 | disposition home or self-care (01) ==
LOC: 4 EAST ACU 22:57
PROVIDERS: Emergency Medicine; ADMITTING PHYSICIAN Internal Medicine; ATTENDING PHYSICIAN Hospitalist; EMERGENCY PHYSICIAN Emergency Medicine; OTHER PHYSICIAN Psychiatry & Neurology Neurology
DX: R20.0 Anesthesia of skin (principal); G93.9 Disorder of brain, unspecified; M50.222 Other cervical disc displacement at C5-C6 level; D64.9 Anemia, unspecified; E55.9 Vitamin D deficiency, unspecified; R59.0 Localized enlarged lymph nodes; Z86.16 Personal history of COVID-19; Z82.3 Family history of stroke; Z82.49 Family history of ischemic heart disease and other diseases of the circulatory system
CPT/HCPCS: 70450; 70553; 72156; 80048; 80053; 80061; 80306; 81025; 82306; 82607; 82728; 82746; 83540; 83550; 84443; 85025; 85027; 85652; 86038; 86140; 93005; 99285; A9585; G0378; J2916